=== PATIENT | male | born 1950 | race Caucasian/White ===

== ENCOUNTER 2019-10-25 15:18 | Inpatient (IN) | payer OTHER ==
--- NOTE | 2019-10-25 15:25 | PDOC ---
History of Present Illness - General Stated Complaint: NUMBNESS IN RT HAND History Source: Patient Exam Limitations: No Limitations - History of Present Illness Initial Comments: 68 yo M with a hx of HTN, HLD, and DM (on anti-oral glycemics) and denies use of aspirin and AC presents to the emergency department with right hand numbness since 2:20 pm today. Per the patient, he was at rest when he experienced the symptoms. Denies recent trauma and neck pain. Per the patient, he does not have a headache and did not have one prior to the onset or at the onset of symptoms. Currently, the patient is asymptomatic save for right arm and hand numbness. Denies the following: fevers, chills, nausea, vomiting, headaches, visual distu rbances, ears/nose/throat pain, chest pain, SOB, abdominal pain, dizziness, lightheadedness, dysuria, hematuria, diarrhea, and leg pain/swelling. Allergies: sulfa tPA Exclusion Checklist 0-3hr - Time Elapsed Date last known well: 10/25/19 Time last known well: 14:20 Elaspsed time: Day(s) and 3 Hour(s) and 22 Minutes - Thrombolytic Therapy Candidate Is the patient eligible for Thrombolytic Therapy?: No - Exclusion Criteria 0-3hr SBP greater than 185 or DBP greater than 110mmHg despite tx: No Recent IC/spinal surgery,head trauma or stroke w/in last 3mo: No Hx of previous IC hemorrhage, IC neoplasm, AVM or aneurysm: No Active internal bleeding: No Blding diathesis(low plt ct, inc PTT,INR>1.7 or use of NOAC): No Symptoms suggest subarachnoid hemorrhage: No CT demonstrates multilobar infarct(>1/3 cerebral hemiphere): No Arterial puncture at noncompressible site in previous 7 days: No Blood glucose concentration less than 50mg/dL (2.7mmol/L): No - Relative Exclusion Criteria 0-3h Care team unable to determine eligibility: No IV/IA thrombolysis/thrombectomy @ another hosp prior arrival: No Life expectancy <1yr/severe co-morbid illness/PICK UP OPERATOR on admit: No : No Patient/family refused: No Stroke severity too mild (non-disabling): Yes Recent acute WA (w/in previous 3 months): No Seizure at onset with postictal residual neuro impairments: No Major surgery or serious trauma w/in previous 14 days: No Recent GI or hemorrhage (w/in previous 21 days): No - Ineligibility reason(s) Reasons No tPA given: See reason(s) noted above NIH Stroke Scale - Last Known Well Date/Time & Onset Date Last Known Well: 10/25/19 Time Last Known Well: 14:20 - Initial Evaluation Level of consciousness: Alert Ask patient the month and their age: Answers both correctly Ask patient to open & close eyes; make fist and let go: Obeys both correctly Best gaze (horizontal eye movement): Normal Visual field testing: No visual field loss Facial paresis (Show teeth/raise eyebrows/close eyes tight): Normal symmetrical movement Motor Function: Left Arm: Normal Motor Function: Right Arm: Normal (extends arm 90 (or 45) degrees for 10 seconds without drift Motor Function: Left Leg: Normal (extends leg 30 degrees for 5 seconds without drift) Motor Function: Right Leg: Normal (extends leg 30 degrees for 5 seconds without drift) Limb Ataxia: Present in one limb (right hand dysmetria) Sensory(Use pinprick test arms,legs,trunk,face/side to side): Normal Best language (Describe picture, name items, read sentences): No Aphasia Dysarthria (read several words): Normal articulation Extinction and Inattention: No abnormality - Total Score NIH Stroke Scale Score: 1 Past History - Past Medical History Allergies/Adverse Reactions: Allergies Allergy/AdvReac Type Severity Reaction Status Date / Time Sulfa (Sulfonamide Allergy Verified 10/25/19 15:28 Antibiotics) Home Medications: Ambulatory Orders Amlodipine Besylate 5 mg PO DAILY 10/25/19 Atorvastatin Ca [Lipitor] 40 mg PO HS 10/25/19 Lisinopril 5 mg PO DAILY 10/25/19 Sitagliptin Phosphate [Januvia] 50 mg PO DAILY 10/25/19 Spironolactone 25 mg PO DAILY 10/25/19 Review of Systems - Review of Systems Able to Perform ROS?: Yes Is the patient limited Luxembourgish proficient: No Constitutional: No: Chills, Diaphoresis, Fever, Weakness HEENTM: No: Eye Pain, Ear Pain, Nose Pain, Throat Pain, Mouth Pain Respiratory: No: Cough, Shortness of Breath, Hemoptysis Cardiac (ROS): No: Chest Pain, Lightheadedness, Palpitations, Chest Tightness ABD/GI: No: Constipated, Diarrhea, Nausea, Rectal Bleeding, Vomiting, Tarry Stools : No: Burning, Hematuria Musculoskeletal: No: Back Pain, Joint Pain, Neck Pain Integumentary: No: Bruising, Erythema, Rash Neurological: Yes: Numbness (right hand). No: Headache Psychiatric: No: Change in Appetite Endocrine: No: Unexplained Weight Gain Hematologic/Lymphatic: No: Anemia *Physical Exam - Physical Exam General Appearance: Yes: Nourished, Appropriately Dressed. No: Apparent Distress, Intoxicated, Obese HEENT: positive: EOMI, VICTORINO, Normal Voice, Symmetrical, Pharynx Normal, Hearing Grossly Normal. negative: Pale Conjunctivae, Scleral Icterus (R), Scleral Icterus (L), Muffled/Hoarse voice, Pharyngeal Erythema, Tonsillar Exudate, Tonsillar Erythema, Nasal Congestion, Rhinorrhea, Sinus Tenderness, Excessive drooling Neck: positive: Trachea midline, Supple. negative: Tender, Lymphadenopathy (R), Lymphadenopathy (L) Respiratory/Chest: positive: Lungs Clear, Normal Breath Sounds. negative: Chest Tender, Respiratory Distress, Accessory Muscle Use, Decreased Breath Sounds, Paradoxal Breathing, Crackles, Rales, Rhonchi Cardiovascular: positive: Regular Rhythm, S1, S2, Tachycardia. negative: Systolic Murmur Gastrointestinal/Abdominal: positive: Normal Bowel Sounds, Flat, Soft. negative : Tender Lymphatic: negative: Adenopathy Musculoskeletal: positive: Normal Inspection. negative: CVA Tenderness, Vertebral Tenderness Extremity: positive: Normal Capillary Refill, Normal Inspection, Normal Range of Motion. negative: Tender, Swelling, Calf Tenderness Integumentary: positive: Normal Color, Dry, Warm. negative: Swelling, Ecchymosis Neurologic: positive: return clerk II-XII NML intact, Fully Oriented, Alert, Normal Mood/Affect, Normal Response, Motor Strength 5/5, Other (dysmetria in the right hand) ED Treatment Course - LABORATORY CBC & Chemistry Diagram: 10/25/19 14:45 10/25/19 14:45 Medical Decision Making - Medical Decision Making 68 yo M with a hx of HTN, HLD, and DM (on anti-oral glycemics) and denies use of aspirin and AC presents to the emergency department with right hand numbness since 2:20 pm today. Per the patient, he was at rest when he experienced the symptoms. Denies recent trauma and neck pain. Initial vitals: Initial Vital Signs Pulse Pulse Ox 95 H 96 10/25/19 15:20 10/25/19 15:20 Work up: patient presents with numbness in the right arm and hand. on physical examinatio n, no sensation deficit or motor strength deficit appreciated. however, the patient had dysmetria with his digits that was apparent on examination. concerns for lacunar vs cerebellum infarct vs hemorrhagic stroke. Neurology was consulted (Dr. Bateman). The patient will need aspirin and atrovastatin after hemorrhagic stroke ruled out Laboratory Tests 10/25/19 10/25/19 10/25/19 14:45 14:45 14:45 WBC 8.7 RBC 4.83 Hgb 15.4 Hct 44.4 MCV 91.9 MCH 31.9 MCHC 34.7 RDW 13.0 Plt Count 187 MPV 10.0 Absolute Neuts (auto) 6.2 Neutrophils % 71.6 Lymphocytes % 17.8 Monocytes % 9.1 Eosinophils % 0.7 Basophils % 0.8 Nucleated RBC % 0 PT with INR 10.80 INR 0.92 PTT (Actin FS) 26.4 Sodium 138 Potassium 4.2 Chloride 105 Carbon Dioxide 26 Anion Gap 7 L BUN 33.1 H Creatinine 1.9 H Est GFR (CKD-EPI)AfAm 41.65 Est GFR (CKD-EPI)NonAf 35.94 Random Glucose 192 H Calcium 9.1 Total Bilirubin 0.3 AST 25 ALT 39 Alkaline Phosphatase 84 Creatine Kinase 111 Troponin I < 0.02 Total Protein 7.2 Albumin 3.8 Triglycerides 174 H Cholesterol 157 Total LDL Cholesterol 93 HDL Cholesterol 40 Blood Type Antibody Screen 10/25/19 14:45 WBC RBC Hgb Hct MCV MCH MCHC RDW Plt Count MPV Absolute Neuts (auto) Neutrophils % Lymphocytes % Monocytes % Eosinophils % Basophils % Nucleated RBC % PT with INR INR PTT (Actin FS) Sodium Potassium Chloride Carbon Dioxide Anion Gap BUN Creatinine Est GFR (CKD-EPI)AfAm Est GFR (CKD-EPI)NonAf Random Glucose Calcium Total Bilirubin AST ALT Alkaline Phosphatase Creatine Kinase Troponin I Total Protein Albumin Triglycerides Cholesterol Total LDL Cholesterol HDL Cholesterol Blood Type AB POSITIVE Antibody Screen Negative ROBERT noted on labs CT of the head noted chronic left external capsule but no acute infarct or hemorrhagic stroke Patient was given aspirin and atorvastatin and admitted to hospitalist service. EKG: ventricular rate 98 bpm, NM is 162 ms, QRS is 76 ms, NSR with no ST elevations or depressions. Q wave noted in III, avF. Dispo: Admit Discharge - Discharge Information Problems reviewed: Yes Clinical Impression/Diagnosis: Cerebrovascular accident (CVA) - Follow up/Referral - Patient Discharge Instructions - Post Discharge Activity
--- NOTE | 2019-10-25 15:29 | PDOC ---
Attending Attestation - Resident Resident Name: OvidioToi - ED Attending Attestation I have performed the following: I have examined & evaluated the patient, The case was reviewed & discussed with the resident, I agree w/resident's findings & plan, Exceptions are as noted - HPI HPI: 10/25/19 16:03 68yo male with hx of htn, dm with R hand numbness and dysmetria today. 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 Pt denies weakness, no other symptoms. No keller. No blurred vision, no cp./sob. No abd pain. Ambulates with a steady gait. - Physicial Exam PE: 10/25/19 16:04 Gen: aaox3, nad heent: PERRL, EOMI, MMM Neck: supple heart: +s1s2 reg lungs: cta b/l abd: soft, nt/nd +bs ext: no c/c/e neuro: cn ii-xii grossly intact, muscle strength 5/5 ue and le, heel to casarez is intact b/l, sensation intact, R hand dysmetria present - Medical Decision Making 10/25/19 16:07 a/p: 68yo male with R hand dysmetria -pt seen by Dr. 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, but nihss 1, low nihss, risk/benefits of tpa discussed, no tpa at this time -pt will be admitted to the stroke floor for further workup -will monitor and reassess 10/25/19 16:35 no acute findings on head ct cbc reviewed and stable chronic findings on head ct 10/25/19 16:52 trop neg elevated cr labs reviewed pt will be admitted for cva workup and further eval 10/25/19 16:52 microblog sent to [facility] for admission 10/25/19 17:29 nikolasnet discussed the case with [facility] who accepts pt to service Heart Score/ECG Review - ECG Intrepretation Comment:: 10/25/19 16:09 sinus at 98, nl axis, low voltage, no acute st/t wave findings
[2019-10-25] MEDS ORDERED: SODIUM CHLORIDE 1,000 ML IV SCH (15:30)
[2019-10-25 16:08] LABS: BASO % 0.8 % (0-2.0); EOS % 0.7 % (0-4.5); HEMATOCRIT 44.4 % (35.4-49); HEMOGLOBIN 15.4 GM/dL (11.7-16.9); LYMPH % 17.8 % (8-40); MCH 31.9 pg (25.7-33.7); MCHC 34.7 g/dl (32.0-35.9); MEAN CELL VOLUME 91.9 fl (80-96); MONO % 9.1 % (3.8-10.2); NEUT % 71.6 % (42.8-82.8); PLATELET COUNT 187 K/MM3 (134-434); RBC 4.83 M/mm3 (4.00-5.60); WHITE BLOOD COUNT 8.7 K/mm3 (4.0-10.0)
[2019-10-25] MEDS ORDERED: ATORVASTATIN CA 80 MG TABLET (FP) PO ONE (16:12)
[2019-10-25] MEDS ORDERED: ASPIRIN 325 MG TABLET PO ONE (16:12)
[2019-10-25 16:29] LABS: INR 0.92 (0.83-1.09); PROTHROMBIN TIME (PATIENT) 10.8 SEC (9.7-13.0)
[2019-10-25 16:31] LABS: ACTIVATED PTT 26.4 SECONDS (25.2-36.5)
[2019-10-25 16:37] LABS: ALBUMIN 3.8 g/dl (3.4-5.0); ALK PHOS 84 U/L (45-117); ANION GAP 7 MMOL/L (8-16); BILIRUBIN,TOTAL 0.3 mg/dL (0.2-1); BLOOD UREA NITROGEN 33.1 mg/dL (7-18); CALCIUM 9.1 mg/dL (8.5-10.1); CHLORIDE 105 mmol/L (98-107); CHOLESTEROL 157 mg/dL (50-200); CO2 26 mmol/L (21-32); CREATININE 1.9 mg/dL (0.55-1.3); GLUCOSE,RANDOM 192 mg/dL (74-106); HDL CHOLESTEROL 40 mg/dL (40-60); LDL CHOLESTEROL (ONLY SJRH) 93 mg/dL (5-100); POTASSIUM 4.2 mmol/L (3.5-5.1); SGOT/AST 25 U/L (15-37); SGPT/ALT 39 U/L (13-61); SODIUM 138 mmol/L (136-145); TOT PROT 7.2 g/dl (6.4-8.2); TRIGLYCERIDES 174 mg/dL (0-150)
[2019-10-25 17:50] LABS: URINE APPEARANCE CLEAR; URINE BILIRUBIN NEGATIVE (NEGATIVE); URINE COLOR YELLOW; URINE GLUCOSE (UA) NEGATIVE (NEGATIVE); URINE KETONE NEGATIVE (NEGATIVE); URINE LEUK ESTERASE NEGATIVE (NEGATIVE); URINE NITRITE NEGATIVE (NEGATIVE); URINE PROTEIN NEGATIVE (NEGATIVE); URINE UROBILINOGEN 0.2 mg/dL (0.2-1.0)
[2019-10-25] MEDS ORDERED: ASPIRIN 81 MG CHEWABLE TABLETS ONE (18:01)
[2019-10-25] MEDS ORDERED: ATORVASTATIN CA 40 MG TABLET (FP) ONE (18:03)
--- NOTE | 2019-10-25 18:11 | HP ---
CHIEF COMPLAINT: right arm weakness PCP: Dr. Mathews PCP, Dr. Camarena (Cardiology), Dr. Fonseca (Buttermaker) HISTORY OF PRESENT ILLNESS: Patient is a 68 year old male with a significant past medical history of hypertension, hyperlipidemia, CKD (follows with neprologist) and diabetes II. Patient presents to the emergency department with right hand numbness since 2:20 pm today. Patient denies any falls, trauma or any neck pain discomfort. Right arm numbness has since subsided, but now feels like his right arm is weaker when compared to the left. he denies any headaches or visual defect. He denies any weakness to his lower extremities. Patient denies any fever, chills, nausea/vomiting or visual defects, or double vision. Patient had a recent stress test done last week with Dr. Camarena for right arm weakness, he is not aware of the results of the stress test as he has a follow up appointment next week. ER course was notable for: (1) asa 325, lipitor 80mg administered in the ED (2) head ct: mild to mod volume loss. chronic infarct involing the left external capsule and extending to the left periven white mater, no acute intracranial pathology identified. (3) Recent Travel: none PAST MEDICAL/SURGICAL HISTORY: hypertension, hyperlipidemia, CKD (follows with neprologist) and diabetes II. Social History: Smoking: none Alcohol:none Drugs: none Allergies Sulfa (Sulfonamide Antibiotics) Allergy (Verified 10/25/19 15:28) HOME MEDICATIONS: Home Medications Medication Instructions Recorded Amlodipine Besylate 5 mg PO DAILY 10/25/19 Atorvastatin Ca [Lipitor] 40 mg PO HS 10/25/19 Lisinopril 5 mg PO DAILY 10/25/19 Sitagliptin Phosphate [Januvia] 50 mg PO DAILY 10/25/19 Spironolactone 25 mg PO DAILY 10/25/19 REVIEW OF SYSTEMS CONSTITUTIONAL: Absent: fever, chills, diaphoresis, generalized weakness, malaise, loss of appetite, weight change HEENT: Absent: rhinorrhea, nasal congestion, throat pain, throat swelling, difficulty swallowing, mouth swelling, ear pain, eye pain, visual changes CARDIOVASCULAR: Absent: chest pain, syncope, palpitations, irregular heart rate, lightheadedness, peripheral edema RESPIRATORY: Absent: cough, shortness of breath, dyspnea with exertion, orthopnea, wheezing, stridor, hemoptysis GASTROINTESTINAL: Absent: abdominal pain, abdominal distension, nausea, vomiting, diarrhea, constipation, melena, hematochezia GENITOURINARY: Absent: dysuria, frequency, urgency, hesitancy, hematuria, flank pain, genital pain MUSCULOSKELETAL: Absent: myalgia, arthralgia, joint swelling, back pain, neck pain SKIN: Absent: rash, itching, pallor HEMATOLOGIC/IMMUNOLOGIC: Absent: easy bleeding, easy bruising, lymphadenopathy, frequent infections ENDOCRINE: Absent: unexplained weight gain, unexplained weight loss, heat intolerance, cold intolerance NEUROLOGIC: Absent: headache, focal weakness or paresthesias, dizziness, unsteady gait, seizure, mental status changes, bladder or bowel incontinence PSYCHIATRIC: Absent: anxiety, depression, suicidal or homicidal ideation, hallucinations. PHYSICAL EXAMINATION Vital Signs - 24 hr 10/25/19 10/25/19 10/25/19 15:20 15:28 15:45 Temperature 98.0 F 98.2 F Pulse Rate 95 H 103 H Pulse Rate [ 95 H Right] Respiratory 20 13 Rate Blood Pressure 139/89 Blood Pressure 119/80 [Left Arm] O2 Sat by Pulse 96 100 96 Oximetry (%) 10/25/19 16:45 Temperature 98.1 F Pulse Rate Pulse Rate [ 94 H Right] Respiratory 18 Rate Blood Pressure Blood Pressure 126/82 [Left Arm] O2 Sat by Pulse 99 Oximetry (%) GENERAL: Awake, alert, and fully oriented, in no acute distress. HEAD: Normal with no signs of trauma. + facial symmetry EYES: Pupils equal, round and reactive to light, extraocular movements intact EARS, NOSE, THROAT: Ears normal, nares patent, oropharynx clear without exudates. Moist mucous membranes. NECK: Normal range of motion, supple without lymphadenopathy, JVD, or masses. LUNGS: Breath sounds equal, clear to auscultation bilaterally. HEART: Regular rate and rhythm ABDOMEN: Soft, nontender, not distended, normoactive bowel sounds, no guarding, no rebound, no masses. No hepatomegaly or splenomegaly. MUSCULOSKELETAL: No CVA tenderness. UPPER EXTREMITIES: No peripheral edema. right arm 4/5, left arm 5/5, left leg 5/5, right leg 5/5 LOWER EXTREMITIES: No calf tenderness. No peripheral edema. NEUROLOGICAL: Normal speech. Normal gait. PSYCHIATRIC: Cooperative. Good eye contact. Appropriate mood and affect. SKIN: Warm, dry, normal turgor, no rashes or lesions noted, normal capillary refill. Laboratory Results - last 24 hr 10/25/19 10/25/19 10/25/19 14:45 14:45 14:45 WBC 8.7 RBC 4.83 Hgb 15.4 Hct 44.4 MCV 91.9 MCH 31.9 MCHC 34.7 RDW 13.0 Plt Count 187 MPV 10.0 Absolute Neuts (auto) 6.2 Neutrophils % 71.6 Lymphocytes % 17.8 Monocytes % 9.1 Eosinophils % 0.7 Basophils % 0.8 Nucleated RBC % 0 PT with INR 10.80 INR 0.92 PTT (Actin FS) 26.4 Sodium 138 Potassium 4.2 Chloride 105 Carbon Dioxide 26 Anion Gap 7 L BUN 33.1 H Creatinine 1.9 H Est GFR (CKD-EPI)AfAm 41.65 Est GFR (CKD-EPI)NonAf 35.94 Random Glucose 192 H Calcium 9.1 Total Bilirubin 0.3 AST 25 ALT 39 Alkaline Phosphatase 84 Creatine Kinase 111 Troponin I < 0.02 Total Protein 7.2 Albumin 3.8 Triglycerides 174 H Cholesterol 157 Total LDL Cholesterol 93 HDL Cholesterol 40 Urine Color Urine Appearance Urine pH Ur Specific [place] Urine Protein Urine Glucose (UA) Urine Ketones Urine Blood Urine Nitrite Urine Bilirubin Urine Urobilinogen Ur Leukocyte Esterase Blood Type Antibody Screen 10/25/19 10/25/19 14:45 17:30 WBC RBC Hgb Hct MCV MCH MCHC RDW Plt Count MPV Absolute Neuts (auto) Neutrophils % Lymphocytes % Monocytes % Eosinophils % Basophils % Nucleated RBC % PT with INR INR PTT (Actin FS) Sodium Potassium Chloride Carbon Dioxide Anion Gap BUN Creatinine Est GFR (CKD-EPI)AfAm Est GFR (CKD-EPI)NonAf Random Glucose Calcium Total Bilirubin AST ALT Alkaline Phosphatase Creatine Kinase Troponin I Total Protein Albumin Triglycerides Cholesterol Total LDL Cholesterol HDL Cholesterol Urine Color Yellow Urine Appearance Clear Urine pH 5.0 Ur Specific [place] 1.023 Urine Protein Negative Urine Glucose (UA) Negative Urine Ketones Negative Urine Blood Negative Urine Nitrite Negative Urine Bilirubin Negative Urine Urobilinogen 0.2 Ur Leukocyte Esterase Negative Blood Type AB POSITIVE Antibody Screen Negative ASSESSMENT/PLAN: Problem List - Problem (1) Cerebrovascular accident (CVA) Assessment/Plan: head ct with chronic changes, no acute pathology identified. for a brain mri to further evaluate as patient has risk factors (dm, htn, hld) carotid u/s ordered trend troponins monitor on tele to rule out cardiac cause of possible tia/stroke neurology consulted given as 325mg and lipitor 80 in the ED for swallow eval/physical therapy Code(s): I63.9 - CEREBRAL INFARCTION, UNSPECIFIED (2) Hypertension Assessment/Plan: controlled continue home meds, amlodopine 5 but will hold eze in the setting of ckd also on spriloadactone 25mg daily monitor bp q4 Code(s): I10 - ESSENTIAL (PRIMARY) HYPERTENSION (3) Hyperlipemia Assessment/Plan: start on atorvastatin 80mg at hs lipid panel to be repeated Code(s): E78.5 - HYPERLIPIDEMIA, UNSPECIFIED (4) Diabetes Assessment/Plan: on januvia hmga1c in the a.m. start on novolog ss with bgm checks Code(s): E11.9 - TYPE 2 DIABETES MELLITUS WITHOUT COMPLICATIONS (5) CKD (chronic kidney disease) Assessment/Plan: unknown baseline patient on eze inhibitors will ask graining operator to evaluate Code(s): N18.9 - CHRONIC KIDNEY DISEASE, UNSPECIFIED (6) DVT prophylaxis Assessment/Plan: heparin bid Code(s): Z29.9 - ENCOUNTER FOR PROPHYLACTIC MEASURES, UNSPECIFIED Visit type - Emergency Visit Emergency Visit: Yes ED Registration Date: 10/25/19 Care time: The patient presented to the Emergency Department on the above date and was hospitalized for further evaluation of their emergent condition. - New Patient This patient is new to me today: Yes Date on this admission: 10/26/19 - Critical Care Critical Care patient: No
--- NOTE | 2019-10-25 20:58 | HOSP ---
Subjective - Review of Symptoms Events since last encounter: Hospitalist Encounter was notified by Dr Bryan's per the director mission radiologist the patient's Brain MRI showed Acute foci of cortical infarction in left precentral gyri. Placed a call to Dr. Bateman's service, to update him of the results. Patient was seen in the ED by Dr. Bateman. Patient received Asa 325mg, Lipitor 80mg and is on the Cardiac Floor for close monitoring. Dr Bateman responded, appraised him of the results. No further orders at this time. Physical Examination Vital Signs: Vital Signs Temperature 98.1 F 10/25/19 16:45 Pulse Rate 94 H 10/25/19 16:45 Respiratory Rate 18 10/25/19 16:45 Blood Pressure 126/82 10/25/19 16:45 O2 Sat by Pulse Oximetry (%) 99 10/25/19 16:45 Labs: CBC, BMP 10/25/19 14:45 10/25/19 14:45 Hospitalist Encounter Assessment: Patient is a 68 year old male with a significant past medical history of hypertension, hyperlipidemia, CKD (follows with neprologist) and diabetes II. Patient presents to the emergency department with right hand numbness since 2:20 pm today. Admitted for CVA. Plan: Continue with current regimen
[2019-10-25] MEDS: HEPARIN NA (PORCINE) 5,000 UNITS/ML 1ML VIAL SQ SCH (21:32)
[2019-10-25] MEDS: INSULIN SLIDING SCALE (NOVOLOG) 1 VIAL SQ SCH (21:36)
--- NOTE | 2019-10-25 21:40 | CON.NEURO ---
Consult Consult Specialty:: Fransico Referred by:: ER Reason for Consultation:: Weakness - History of Present Illness History of Present Illness: 68 year sold man with PMH CAD OA DM HTN came in the ERe with right hand numbness at 1300 I saw the patient at 1445 in [facility] ER hand was weak Stroke protoclol intialed No TPOA due to low NIHSS CT and MR done - History Source History Provided By: Patient Limitations to Obtaining History: No Limitations - Alcohol/Substance Use Hx Alcohol Use: No - Smoking History Smoking history: Unknown if ever smoked Home Medications - Allergies Allergies/Adverse Reactions: Allergies Allergy/AdvReac Type Severity Reaction Status Date / Time Sulfa (Sulfonamide Allergy Verified 10/25/19 15:28 Antibiotics) - Home Medications Home Medications: Ambulatory Orders Amlodipine Besylate 5 mg PO DAILY 10/25/19 Atorvastatin Ca [Lipitor] 40 mg PO HS 10/25/19 Lisinopril 5 mg PO DAILY 10/25/19 Sitagliptin Phosphate [Januvia] 50 mg PO DAILY 10/25/19 Spironolactone 25 mg PO DAILY 10/25/19 Family Medical History Family History: Unremarkable Review of Systems - Review of Systems Neurological: reports: Headache, Incoordination, Numbness Physical Exam-Neuro Vital Signs: Vital Signs Temperature 98.1 F 10/25/19 16:45 Pulse Rate 94 H 10/25/19 16:45 Respiratory Rate 18 10/25/19 16:45 Blood Pressure 126/82 10/25/19 16:45 O2 Sat by Pulse Oximetry (%) 99 10/25/19 16:45 Constitutional: Yes: Well Nourished Neck: Yes: WNL Cardiovascular: Yes: WNL Labs: CBC, BMP 10/25/19 14:45 10/25/19 14:45 INR, PTT INR 0.92 (0.83-1.09) 10/25/19 14:45 - Neuro Exam Level Of Consciousness: Yes: Oriented to Person, Oriented to Place, Oriented to Time Eyes: Yes: PERRLA Speech: WNL Dominant Hand: Right Cranial Nerves II-XII Intact: Yes Gag: Present DTR's: 1+ Left Bicep, 1+ Right Bicep, 1+ Left Tricep, 1+ Right Tricep Response to light touch: Normal Response to pain prick: Normal Response to temperature: Normal Response to vibration: Abnormal Motor Strength: 3/5: Right Arm, 4/5: Left Arm, Left Leg, Right Leg Gait: Deferred NIH Stroke Scale - Last Known Well Date/Time & Onset Date Last Known Well: 10/25/19 Time Last Known Well: 13:00 - Initial Evaluation Level of consciousness: Alert Ask patient the month and their age: Answers both correctly Ask patient to open & close eyes; make fist and let go: Obeys both correctly Best gaze (horizontal eye movement): Normal Visual field testing: No visual field loss Facial paresis (Show teeth/raise eyebrows/close eyes tight): Normal symmetrical movement Motor Function: Left Arm: Normal Motor Function: Right Arm: Drift Motor Function: Left Leg: Normal (extends leg 30 degrees for 5 seconds without drift) Motor Function: Right Leg: Normal (extends leg 30 degrees for 5 seconds without drift) Limb Ataxia: No ataxia Sensory(Use pinprick test arms,legs,trunk,face/side to side): Normal Best language (Describe picture, name items, read sentences): No Aphasia Dysarthria (read several words): Normal articulation Extinction and Inattention: No abnormality - Total Score NIH Stroke Scale Score: 1 Imaging - Results X-ray: Image Reviewed MRI: Image Reviewed Problem List - Problems (1) Cerebrovascular accident (CVA) Code(s): I63.9 - CEREBRAL INFARCTION, UNSPECIFIED Assessment/Plan 1. Neuro check 2. ASA Antiplatelet 3. Fall precautions 4, Am lipid 5. PT 5. Dysphagia protocol 6. Statin 7. Echo 8. Stroke education: weight loss and smoking cessation 9. SCDs units I thank you for all you trust in getting me involved in the is patient neurological care Thank you Feli Bateman MD Neurology
[2019-10-25 23:00] VITALS: BMI 29.5
[2019-10-25] MEDS ORDERED: PNEUMOC 13-VAL CONJ-DIP CRM/PF 0.5 ML DISP.SYRIN IM ONE (23:45)
[2019-10-25] MEDS ORDERED: FLU VACCINE QUAD 60 MCG/0.5 ML (MDV 19-20) IM ONE (23:45)
[2019-10-26] MEDS: INSULIN SLIDING SCALE (NOVOLOG) 1 VIAL SQ SCH ×4 (06:48→21:29)
--- NOTE | 2019-10-26 09:51 | EKG ---
Test Reason : Blood Pressure : / mmHG Vent. Rate : 098 BPM Atrial Rate : 098 BPM P-R Int : 162 ms QRS Dur : 076 ms QT Int : 346 ms P-R-T Axes : 020 -15 036 degrees QTc Int : 441 ms NORMAL SINUS RHYTHM LOW VOLTAGE QRS CANNOT RULE OUT ANTERIOR INFARCT , AGE UNDETERMINED ABNORMAL ECG NO PREVIOUS ECGS AVAILABLE Confirmed by Antonio Romeo MD ([id number]) on 10/26/2019 9:50:47 AM Referred By: Confirmed By:Antonio Romeo MD
[2019-10-26] MEDS: ASPIRIN 81 MG CHEWABLE TABLETS PO SCH (09:59)
[2019-10-26] MEDS: HEPARIN NA (PORCINE) 5,000 UNITS/ML 1ML VIAL SQ SCH ×2 (09:59→21:24)
[2019-10-26] MEDS ORDERED: ASPIRIN COATED 81 MG TABLET.EC PO SCH (10:00)
[2019-10-26] MEDS ORDERED: amLODIPine BESYLATE 5 MG TABLET (FP) PO SCH (10:00)
[2019-10-26] MEDS ORDERED: SPIRONOLACTONE 25 MG TABLET (FP) PO SCH (10:00)
--- NOTE | 2019-10-26 10:56 | PN ---
Progress Note (short form) - Note Progress Note: CHIEF COMPLAINT: right arm weakness PCP: Dr. Mathews PCP, Dr. Camarena (Cardiology), Dr. Fonseca (Benzol Operator) HISTORY OF PRESENT ILLNESS: Patient is a 68 year old male with a significant past medical history of hypertension, hyperlipidemia, CKD (follows with neprologist) and diabetes II. Patient presents to the emergency department with right hand numbness since 2:20 pm today. Patient denies any falls, trauma or any neck pain discomfort. Right arm numbness has since subsided, but now feels like his right arm is weaker when compared to the left. he denies any headaches or visual defect. He denies any weakness to his lower extremities. Patient denies any fever, chills, nausea/vomiting or visual defects, or double vision. Patient had a recent stress test done last week with Dr. Camarena for right arm weakness, he is not aware of the results of the stress test as he has a follow up appointment next week. The sx improved and today feels better. No CP/PAlpitations. States not been on ASA Recent Travel: none PAST MEDICAL/SURGICAL HISTORY: hypertension, hyperlipidemia, CKD (follows with neprologist) and diabetes II. Social History: Smoking: none Alcohol:none Drugs: none Allergies Sulfa (Sulfonamide Antibiotics) Allergy (Verified 10/25/19 15:28) HOME MEDICATIONS: Home Medications Medication Instructions Recorded Amlodipine Besylate 5 mg PO DAILY 10/25/19 Atorvastatin Ca [Lipitor] 40 mg PO HS 10/25/19 Lisinopril 5 mg PO DAILY 10/25/19 Sitagliptin Phosphate [Januvia] 50 mg PO DAILY 10/25/19 Spironolactone 25 mg PO DAILY 10/25/19 REVIEW OF SYSTEMS CONSTITUTIONAL: Absent: fever, chills, diaphoresis, generalized weakness, malaise, loss of appetite, weight change HEENT: Absent: rhinorrhea, nasal congestion, throat pain, throat swelling, difficulty swallowing, mouth swelling, ear pain, eye pain, visual changes CARDIOVASCULAR: Absent: chest pain, syncope, palpitations, irregular heart rate, lightheadedness, peripheral edema RESPIRATORY: Absent: cough, shortness of breath, dyspnea with exertion, orthopnea, wheezing, stridor, hemoptysis GASTROINTESTINAL: Absent: abdominal pain, abdominal distension, nausea, vomiting, diarrhea, constipation, melena, hematochezia GENITOURINARY: Absent: dysuria, frequency, urgency, hesitancy, hematuria, flank pain, genital pain MUSCULOSKELETAL: Absent: myalgia, arthralgia, joint swelling, back pain, neck pain SKIN: Absent: rash, itching, pallor HEMATOLOGIC/IMMUNOLOGIC: Absent: easy bleeding, easy bruising, lymphadenopathy, frequent infections ENDOCRINE: Absent: unexplained weight gain, unexplained weight loss, heat intolerance, cold intolerance NEUROLOGIC: Absent: headache, focal weakness or paresthesias, dizziness, unsteady gait, seizure, mental status changes, bladder or bowel incontinence PSYCHIATRIC: Absent: anxiety, depression, suicidal or homicidal ideation, hallucinations. PHYSICAL EXAMINATION Vital Signs Temperature 98.5 F 10/26/19 08:21 Pulse Rate 78 10/26/19 08:21 Respiratory Rate 20 10/26/19 08:21 Blood Pressure 153/90 10/26/19 08:21 O2 Sat by Pulse Oximetry (%) 95 10/25/19 22:00 CBC, BMP 10/26/19 10:50 10/26/19 10:50 Troponin, BNP 10/25/19 14:45 Troponin I < 0.02 A&Ox3 NAD Anicteric sclerae No JVP/Bruit L:CTA H:RRR,S1S2, no M/Cl/G/R Abd: soft Ext: No edema Current Medications Aspirin (Asa -) 81 mg PO DAILY [facility] Last Admin: 10/26/19 09:59 Dose: 81 mg Documented by: Atorvastatin Calcium (Lipitor -) 80 mg PO HS [facility] Heparin Sodium (Porcine) (Heparin -) 5,000 unit SQ BID [facility] Last Admin: 10/26/19 09:59 Dose: 5,000 unit Documented by: Sodium Chloride (Normal Saline -) 1,000 mls @ 42 mls/hr IV ASDIR [facility] Last Admin: 10/25/19 16:08 Dose: 42 mls/hr Documented by: Insulin Aspart (Novolog Vial Sliding Scale -) 1 vial SQ ACHS [facility]; Protocol Last Admin: 10/26/19 06:48 Dose: Not Given Documented by: ASSESSMENT/PLAN: Problem List - Problem (1) Cerebrovascular accident (CVA) As per neurologist; Left CVA on MRI, mild carotid plaques; statin, antihtn and ASA -Echo with bubble study -If cause unclear, extended 1 month monitoring t r/o [employer] as outpatient Code(s): I63.9 - CEREBRAL INFARCTION, UNSPECIFIED (2) Hypertension Assessment/Plan: controlled continue home meds, amlodopine 5 but will hold eze in the setting of ckd also on spriloadactone 25mg daily monitor bp q4 Code(s): I10 - ESSENTIAL (PRIMARY) HYPERTENSION (3) Hyperlipemia Assessment/Plan: start on atorvastatin 80mg at hs lipid panel to be repeated Code(s): E78.5 - HYPERLIPIDEMIA, UNSPECIFIED (4) Diabetes Assessment/Plan: on januvia hmga1c in the a.m. start on novolog ss with bgm checks Code(s): E11.9 - TYPE 2 DIABETES MELLITUS WITHOUT COMPLICATIONS (5) CKD (chronic kidney disease) Assessment/Plan: unknown baseline patient on eze inhibitors will ask reaming press operator to evaluate Code(s): N18.9 - CHRONIC KIDNEY DISEASE, UNSPECIFIED (6) DVT prophylaxis Assessment/Plan: heparin bid Code(s): Z29.9 - ENCOUNTER FOR PROPHYLACTIC MEASURES, UNSPECIFIED
[2019-10-26 11:19] LABS: BASO % 0.6 % (0-2.0); EOS % 0.4 % (0-4.5); HEMATOCRIT 44.1 % (35.4-49); HEMOGLOBIN 15.1 GM/dL (11.7-16.9); MCH 31.5 pg (25.7-33.7); MCHC 34.2 g/dl (32.0-35.9); MEAN PLT VOLUME 9.9 fl (7.5-11.1); MONO % 9.5 % (3.8-10.2); NEUT % 75.5 % (42.8-82.8); PLATELET COUNT 167 K/MM3 (134-434); RDW 13.2 % (11.9-15.9); WHITE BLOOD COUNT 9.8 K/mm3 (4.0-10.0)
[2019-10-26 12:04] LABS: ALBUMIN 3.9 g/dl (3.4-5.0); BILIRUBIN,TOTAL 0.8 mg/dL (0.2-1); BLOOD UREA NITROGEN 26.3 mg/dL (7-18); CREATININE 1.6 mg/dL (0.55-1.3); POTASSIUM 4.6 mmol/L (3.5-5.1); TOT PROT 7.2 g/dl (6.4-8.2)
--- NOTE | 2019-10-26 15:02 | PN ---
Progress Note, Physician History of Present Illness: eevents noted Seen on the telemetry No chest pain or palpitation Left arm is much better Seen by physical therapy On the antiplatelet therapy - Current Medication List Current Medications: Active Medications Amlodipine Besylate (Norvasc -) 10 mg PO DAILY [facility] Aspirin (Asa -) 81 mg PO DAILY [facility] Last Admin: 10/26/19 09:59 Dose: 81 mg Documented by: Atorvastatin Calcium (Lipitor -) 80 mg PO HS [facility] Heparin Sodium (Porcine) (Heparin -) 5,000 unit SQ BID [facility] Last Admin: 10/26/19 09:59 Dose: 5,000 unit Documented by: Sodium Chloride (Normal Saline -) 1,000 mls @ 42 mls/hr IV ASDIR [facility] Last Admin: 10/25/19 16:08 Dose: 42 mls/hr Documented by: Insulin Aspart (Novolog Vial Sliding Scale -) 1 vial SQ ACHS [facility]; Protocol Last Admin: 10/26/19 13:59 Dose: Not Given Documented by: - Objective Vital Signs: Vital Signs Temperature 98.8 F 10/26/19 14:00 Pulse Rate 86 10/26/19 14:00 Respiratory Rate 20 10/26/19 14:00 Blood Pressure 133/71 10/26/19 14:00 O2 Sat by Pulse Oximetry (%) 95 10/26/19 09:00 Constitutional: Yes: Well Nourished Eyes: Yes: WNL HENT: Yes: WNL Neurological: Yes: Alert, Oriented, Babinski positive ...Motor Strength: RUE (4/5) Labs: CBC, BMP 10/26/19 10:50 10/26/19 10:50 INR, PTT INR 0.92 (0.83-1.09) 10/25/19 14:45 Problem List - Problems (1) Cerebrovascular accident (CVA) Code(s): I63.9 - CEREBRAL INFARCTION, UNSPECIFIED Assessment/Plan 1. Continue antiplatelet. 2. Acute rehabilitation. 3. Fall precautions. Tight cholesterol control
[2019-10-26] MEDS: amLODIPine BESYLATE 10 MG TABLET (FP) PO SCH (15:15)
--- NOTE | 2019-10-26 16:37 | PN ---
Physical Exam: SUBJECTIVE: Patient seen and examined. denies pain, headaches or visual defects. OBJECTIVE: Patient is a 68 year old male with a significant past medical history of hypertension, hyperlipidemia, CKD (follows with neprologist) and diabetes II. Patient presents to the emergency department with right hand numbness, with acute onset on 10/24/2001 at 2:20 pm. Patient denies any falls, trauma or any neck pain discomfort. Head Ct negative for acute process but a chronic infarct in the left external capsule seen. Brain MRI confirms CVA with findings of acute foci of cortical infarction in left precentral gyri. Period Temp Pulse Resp BP Sys/Garcia Pulse Ox Last 24 Hr 97.1 F-98.8 F 63-95 13-20 119-153/70-90 95-99 GENERAL: Awake, alert, and fully oriented, in no acute distress. HEAD: Normal with no signs of trauma. + facial symmetry EYES: Pupils equal, round and reactive to light, extraocular movements intact EARS, NOSE, THROAT: Ears normal, nares patent, oropharynx clear without exudates. Moist mucous membranes. NECK: Normal range of motion, supple without lymphadenopathy, JVD, or masses. LUNGS: Breath sounds equal, clear to auscultation bilaterally. HEART: Regular rate and rhythm ABDOMEN: Soft, nontender, not distended, normoactive bowel sounds, no guarding, no rebound, no masses. No hepatomegaly or splenomegaly. MUSCULOSKELETAL: No CVA tenderness. UPPER EXTREMITIES: No peripheral edema. right arm 4/5, left arm 5/5, left leg 5/5, right leg 5/5 LOWER EXTREMITIES: No calf tenderness. No peripheral edema. NEUROLOGICAL: Normal speech. Normal gait. PSYCHIATRIC: Cooperative. Good eye contact. Appropriate mood and affect. SKIN: Warm, dry, normal turgor, no rashes or lesions noted, normal capillary refill. Laboratory Results - last 24 hr 10/25/19 10/25/19 10/25/19 14:45 14:45 14:45 WBC 8.7 RBC 4.83 Hgb 15.4 Hct 44.4 MCV 91.9 MCH 31.9 MCHC 34.7 RDW 13.0 Plt Count 187 MPV 10.0 Absolute Neuts (auto) 6.2 Neutrophils % 71.6 Lymphocytes % 17.8 Monocytes % 9.1 Eosinophils % 0.7 Basophils % 0.8 Nucleated RBC % 0 PT with INR 10.80 INR 0.92 PTT (Actin FS) 26.4 Sodium 138 Potassium 4.2 Chloride 105 Carbon Dioxide 26 Anion Gap 7 L BUN 33.1 H Creatinine 1.9 H Est GFR (CKD-EPI)AfAm 41.65 Est GFR (CKD-EPI)NonAf 35.94 POC Glucometer Random Glucose 192 H Hemoglobin A1c % Calcium 9.1 Phosphorus Magnesium Total Bilirubin 0.3 AST 25 ALT 39 Alkaline Phosphatase 84 Creatine Kinase 111 Troponin I < 0.02 Total Protein 7.2 Albumin 3.8 Triglycerides 174 H Cholesterol 157 Total LDL Cholesterol 93 HDL Cholesterol 40 Urine Color Urine Appearance Urine pH Ur Specific Hazel Urine Protein Urine Glucose (UA) Urine Ketones Urine Blood Urine Nitrite Urine Bilirubin Urine Urobilinogen Ur Leukocyte Esterase Blood Type Antibody Screen 10/25/19 10/25/19 10/25/19 14:45 17:30 21:36 WBC RBC Hgb Hct MCV MCH MCHC RDW Plt Count MPV Absolute Neuts (auto) Neutrophils % Lymphocytes % Monocytes % Eosinophils % Basophils % Nucleated RBC % PT with INR INR PTT (Actin FS) Sodium Potassium Chloride Carbon Dioxide Anion Gap BUN Creatinine Est GFR (CKD-EPI)AfAm Est GFR (CKD-EPI)NonAf POC Glucometer 112 Random Glucose Hemoglobin A1c % Calcium Phosphorus Magnesium Total Bilirubin AST ALT Alkaline Phosphatase Creatine Kinase Troponin I Total Protein Albumin Triglycerides Cholesterol Total LDL Cholesterol HDL Cholesterol Urine Color Yellow Urine Appearance Clear Urine pH 5.0 Ur Specific Hazel 1.023 Urine Protein Negative Urine Glucose (UA) Negative Urine Ketones Negative Urine Blood Negative Urine Nitrite Negative Urine Bilirubin Negative Urine Urobilinogen 0.2 Ur Leukocyte Esterase Negative Blood Type AB POSITIVE Antibody Screen Negative 10/26/19 10/26/19 10/26/19 05:16 10:50 10:50 WBC 9.8 RBC 4.80 Hgb 15.1 Hct 44.1 MCV 92.0 MCH 31.5 MCHC 34.2 RDW 13.2 Plt Count 167 MPV 9.9 Absolute Neuts (auto) 7.4 Neutrophils % 75.5 Lymphocytes % 14.0 D Monocytes % 9.5 Eosinophils % 0.4 Basophils % 0.6 Nucleated RBC % 0 PT with INR INR PTT (Actin FS) Sodium 138 Potassium 4.6 Chloride 105 Carbon Dioxide 26 Anion Gap 7 L BUN 26.3 H Creatinine 1.6 H Est GFR (CKD-EPI)AfAm 51.27 Est GFR (CKD-EPI)NonAf 44.24 POC Glucometer 129 Random Glucose 152 H Hemoglobin A1c % Calcium 9.0 Phosphorus 2.0 L Magnesium Total Bilirubin 0.8 AST 25 ALT 38 Alkaline Phosphatase 86 Creatine Kinase Troponin I Total Protein 7.2 Albumin 3.9 Triglycerides 162 H Cholesterol 164 Total LDL Cholesterol 97 HDL Cholesterol 40 Urine Color Urine Appearance Urine pH Ur Specific Hazel Urine Protein Urine Glucose (UA) Urine Ketones Urine Blood Urine Nitrite Urine Bilirubin Urine Urobilinogen Ur Leukocyte Esterase Blood Type Antibody Screen 10/26/19 10/26/19 10/26/19 10:50 10:50 12:15 WBC RBC Hgb Hct MCV MCH MCHC RDW Plt Count MPV Absolute Neuts (auto) Neutrophils % Lymphocytes % Monocytes % Eosinophils % Basophils % Nucleated RBC % PT with INR INR PTT (Actin FS) Sodium Potassium Chloride Carbon Dioxide Anion Gap BUN Creatinine Est GFR (CKD-EPI)AfAm Est GFR (CKD-EPI)NonAf POC Glucometer 115 Random Glucose Hemoglobin A1c % 7.0 H Calcium Phosphorus Magnesium 2.0 Total Bilirubin AST ALT Alkaline Phosphatase Creatine Kinase Troponin I Total Protein Albumin Triglycerides Cholesterol Total LDL Cholesterol HDL Cholesterol Urine Color Urine Appearance Urine pH Ur Specific Hazel Urine Protein Urine Glucose (UA) Urine Ketones Urine Blood Urine Nitrite Urine Bilirubin Urine Urobilinogen Ur Leukocyte Esterase Blood Type Antibody Screen Active Medications Generic Name Dose Route Start Last Admin Trade Name Clayq PRN Reason Stop Dose Admin Amlodipine Besylate 10 mg 10/26/19 14:30 10/26/19 15:15 Norvasc - PO 10 mg DAILY [facility] Administration Aspirin 81 mg 10/26/19 10:00 10/26/19 09:59 Asa - PO 81 mg DAILY [facility] Administration Atorvastatin Calcium 80 mg 10/26/19 22:00 Lipitor - PO HS [facility] Heparin Sodium (Porcine) 5,000 unit 10/25/19 22:00 10/26/19 09:59 Heparin - SQ 5,000 unit BID [facility] Administration Sodium Chloride 1,000 mls @ 42 mls/hr 10/25/19 15:30 10/25/19 16:08 Normal Saline - IV 42 mls/hr ASDIR [facility] Administration Insulin Aspart 1 vial 10/25/19 22:00 10/26/19 13:59 Novolog Vial Sliding Scale - SQ Not Given ACHS [facility] Protocol ASSESSMENT/PLAN: Problem List - Problems (1) Cerebrovascular accident (CVA) Assessment/Plan: CVA confirmed by brain MRI that showed acute foci of cortical infarction in left precentral gyri. Carotid ultrasounds without hemodynamic findings troponins negative Monitor on tele to rule out cardiac cause of possible tia/stroke neurology consulted and following given as 325mg and lipitor 80 in the ED, will continue with asa 81mg and lipitor 80mg for swallow eval/physical therapy Code(s): I63.9 - CEREBRAL INFARCTION, UNSPECIFIED (2) Hypertension Assessment/Plan: controlled continue home meds, amlodopine 5 but will hold eze in the setting of ckd also on spriloadactone 25mg daily monitor bp q4 Code(s): I10 - ESSENTIAL (PRIMARY) HYPERTENSION (3) Hyperlipemia Assessment/Plan: start on atorvastatin 80mg at hs lipid panel shows elevated triglycerides Code(s): E78.5 - HYPERLIPIDEMIA, UNSPECIFIED (4) Diabetes Assessment/Plan: on januvia hmga1c 7.0 on novolog ss with bgm checks Code(s): E11.9 - TYPE 2 DIABETES MELLITUS WITHOUT COMPLICATIONS (5) CKD (chronic kidney disease) Assessment/Plan: unknown baseline patient on eze inhibitors will ask pulping machine operator to evaluate Code(s): N18.9 - CHRONIC KIDNEY DISEASE, UNSPECIFIED (6) DVT prophylaxis Assessment/Plan: heparin bid Code(s): Z29.9 - ENCOUNTER FOR PROPHYLACTIC MEASURES, UNSPECIFIED Visit type - Emergency Visit Emergency Visit: Yes ED Registration Date: 10/25/19 Care time: The patient presented to the Emergency Department on the above date and was hospitalized for further evaluation of their emergent condition. - New Patient This patient is new to me today: No - Critical Care Critical Care patient: No - Discharge Referral Referred to [facility] No
--- NOTE | 2019-10-26 16:59 | CONSULT ---
Consult Consult Specialty:: Nephrology Reason for Consultation:: CKD - History of Present Illness Chief Complaint: rigth arm numbness History of Present Illness: Pt is a 68 year old male with pmhx of ckd, DM, hld, and htn who presents to the ER with right arm numbness. He was found to have a CVA. I was called to evaluate him for elevated manager enrollment. He Has history of ckd and his baseline is about 1.7. He denies dysuria or hematuria. He does follow with a bench press operator. He says that the ckd was attributed to htn. He denies nsaid use. - History Source History Provided By: Patient - Past Medical History Cardio/Vascular: Yes: HTN Renal/: Yes: Renal Inusuff - Alcohol/Substance Use Hx Alcohol Use: No - Smoking History Smoking history: Never smoked Have you smoked in the past 12 months: No Home Medications - Allergies Allergies/Adverse Reactions: Allergies Allergy/AdvReac Type Severity Reaction Status Date / Time Sulfa (Sulfonamide Allergy Verified 10/25/19 15:28 Antibiotics) - Home Medications Home Medications: Ambulatory Orders Amlodipine Besylate 5 mg PO DAILY 10/25/19 Atorvastatin Ca [Lipitor] 40 mg PO HS 10/25/19 Lisinopril 5 mg PO DAILY 10/25/19 Sitagliptin Phosphate [Januvia] 50 mg PO DAILY 10/25/19 Spironolactone 25 mg PO DAILY 10/25/19 Family Medical History Family History: Denies Review of Systems - Review of Systems Constitutional: reports: Malaise Eyes: reports: No Symptoms HENT: reports: No Symptoms Neck: reports: No Symptoms Cardiovascular: reports: No Symptoms Gastrointestinal: reports: No Symptoms Genitourinary: reports: No Symptoms Musculoskeletal: reports: Other (right arm weakness) Neurological: reports: Other (right arm weakness) Endocrine: reports: No Symptoms Psychiatric: reports: No Symptoms Physical Exam Vital Signs: Vital Signs Temperature 98.8 F 10/26/19 14:00 Pulse Rate 86 10/26/19 14:00 Respiratory Rate 20 10/26/19 14:00 Blood Pressure 133/71 10/26/19 14:00 O2 Sat by Pulse Oximetry (%) 95 10/26/19 09:00 Constitutional: Yes: Calm Eyes: Yes: Conjunctiva Clear HENT: Yes: Atraumatic Neck: Yes: Supple Cardiovascular: Yes: S1, S2 Respiratory: Yes: CTA Bilaterally Gastrointestinal: Yes: Normal Bowel Sounds, Soft Renal/: Yes: WNL Musculoskeletal: Yes: WNL Edema: No Neurological: Yes: Oriented, Other (right arm weakness) Psychiatric: Yes: Oriented Labs: CBC, BMP 10/26/19 10:50 10/26/19 10:50 Laboratory Tests 10/25/19 10/25/19 10/26/19 14:45 17:30 10:50 Creatinine 1.9 H 1.6 H Urine Protein Negative Urine Blood Negative Imaging - Results MRI: Report Reviewed Problem List - Problems (1) CKD (chronic kidney disease) Code(s): N18.9 - CHRONIC KIDNEY DISEASE, UNSPECIFIED (2) Cerebrovascular accident (CVA) Code(s): I63.9 - CEREBRAL INFARCTION, UNSPECIFIED (3) Hyperlipemia Code(s): E78.5 - HYPERLIPIDEMIA, UNSPECIFIED (4) Hypertension Code(s): I10 - ESSENTIAL (PRIMARY) HYPERTENSION Assessment/Plan Current Medications Generic Name Dose Route Start Last Admin Trade Name Karla PRN Reason Stop Dose Admin Amlodipine Besylate 10 mg 10/26/19 14:30 10/26/19 15:15 Norvasc - PO 10 mg DAILY [facility] Administration Aspirin 81 mg 10/26/19 10:00 10/26/19 09:59 Asa - PO 81 mg DAILY [facility] Administration Atorvastatin Calcium 80 mg 10/26/19 22:00 Lipitor - PO HS [facility] Heparin Sodium (Porcine) 5,000 unit 10/25/19 22:00 10/26/19 09:59 Heparin - SQ 5,000 unit BID [facility] Administration Sodium Chloride 1,000 mls @ 42 mls/hr 10/25/19 15:30 10/25/19 16:08 Normal Saline - IV 42 mls/hr ASDIR [facility] Administration Insulin Aspart 1 vial 10/25/19 22:00 10/26/19 13:59 Novolog Vial Sliding Scale - SQ Not Given ACHS [facility] Protocol Impression 1. CKD 2. CVA 3. HTN 4. cad Plan - can d/c fluids - renal function stable - bp meds on hold as bp is on the low side - avoid nephrotoxins - ua negative for blood or protein - repeat labs in am
[2019-10-26] MEDS ORDERED: ATORVASTATIN CA 80 MG TABLET (FP) PO SCH ×2 (22:00)
[2019-10-27] MEDS: INSULIN SLIDING SCALE (NOVOLOG) 1 VIAL SQ SCH ×2 (06:17→12:26)
--- NOTE | 2019-10-27 09:55 | PN ---
Progress Note, Physician History of Present Illness: Right hand numbness resolving. - Current Medication List Current Medications: Active Medications Amlodipine Besylate (Norvasc -) 10 mg PO DAILY [facility] Last Admin: 10/26/19 15:15 Dose: 10 mg Documented by: Aspirin (Asa -) 81 mg PO DAILY [facility] Last Admin: 10/26/19 09:59 Dose: 81 mg Documented by: Atorvastatin Calcium (Lipitor -) 80 mg PO HS [facility] Last Admin: 10/26/19 21:24 Dose: 80 mg Documented by: Heparin Sodium (Porcine) (Heparin -) 5,000 unit SQ BID [facility] Last Admin: 10/26/19 21:24 Dose: 5,000 unit Documented by: Insulin Aspart (Novolog Vial Sliding Scale -) 1 vial SQ ACHS [facility]; Protocol Last Admin: 10/27/19 06:17 Dose: Not Given Documented by: - Objective Vital Signs: Vital Signs Temperature 97.6 F 10/27/19 01:26 Pulse Rate 68 10/27/19 05:50 Respiratory Rate 20 10/27/19 05:50 Blood Pressure 112/77 10/27/19 05:50 O2 Sat by Pulse Oximetry (%) 97 10/26/19 21:00 Constitutional: Yes: No Distress, Calm Neck: Yes: Supple Cardiovascular: Yes: Regular Rate and Rhythm Respiratory: Yes: Regular, CTA Bilaterally Gastrointestinal: Yes: Normal Bowel Sounds, Soft Edema: No Labs: CBC, BMP 10/26/19 10:50 10/26/19 10:50 INR, PTT INR 0.92 (0.83-1.09) 10/25/19 14:45 - ....Imaging EKG: Report Reviewed (Tele: NSR, no PAF) Assessment/Plan 10/25/2019 Brain MRI: acute cortical infarct left precentral gyri - Problem (1) Cerebrovascular accident (CVA) As per neurologist; Left CVA on MRI, mild carotid plaques; statin, antihtn and ASA 81 qd -Echo with bubble study -If cause unclear, extended 1 month monitoring to r/o Afib/flutter as outpatient Code(s): I63.9 - CEREBRAL INFARCTION, UNSPECIFIED (2) Hypertension Assessment/Plan: controlled continue home meds, amlodopine 5 but will hold eze and spirinolactone 25mg daily in the setting of acute on ckd Code(s): I10 - ESSENTIAL (PRIMARY) HYPERTENSION (3) Hyperlipemia Assessment/Plan: start on atorvastatin 80mg qhs Code(s): E78.5 - HYPERLIPIDEMIA, UNSPECIFIED (4) Diabetes Assessment/Plan: on januvia Ha1c 7.0%. start on novolog ss with bgm checks Code(s): E11.9 - TYPE 2 DIABETES MELLITUS WITHOUT COMPLICATIONS (5) Acute on CKD (chronic kidney disease) improving Assessment/Plan: unknown baseline, will check outpatient records patient on eze inhibitors and spirinolactone held pending renal fxn stabilization will ask automobile mechanic motor to evaluate Code(s): N18.9 - CHRONIC KIDNEY DISEASE, UNSPECIFIED (6) DVT prophylaxis Assessment/Plan: heparin bid Code(s): Z29.9 - ENCOUNTER FOR PROPHYLACTIC MEASURES, UNSPECIFIED
--- NOTE | 2019-10-27 10:00 | CONSULT ---
Admitting History and Physical - Primary Care Physician PCP: Mary Joseph - Admission History of Present Illness: 68 year old male with a significant past medical history of hypertension, hyperlipidemia, CKD and diabetes II presented with right hand numbness. Head Ct negative for acute process but a chronic infarct in the left external capsule seen. Brain MRI confirms CVA with findings of acute foci of cortical infarction in left precentral gyri. Selected Entries 10/26/19 10/26/19 10/26/19 03:00 05:46 08:21 Breakfast Supper Temperature 98 F 97.1 F L 98.5 F 10/26/19 10/26/19 10/26/19 09:00 10:44 14:00 Breakfast 75% Supper Temperature 98.5 F 98.8 F 10/26/19 10/26/19 10/27/19 18:00 21:19 01:26 Breakfast Supper 100% Temperature 98.2 F 98.2 F 97.6 F 10/27/19 09:21 Breakfast 75% Supper Temperature Laboratory Tests 10/25/19 10/26/19 14:45 10:50 WBC 8.7 9.8 Went down for echo. History Source: Patient Limitations to Obtaining History: No Limitations - Past Medical History Cardiovascular: Yes: HTN Renal/: Yes: Renal Inusuff - Smoking History Smoking history: Never smoked Have you smoked in the past 12 months: No - Alcohol/Substance Use Hx Alcohol Use: No History - Admission Reason For Visit: CEREBROVASCULAR ACCIDENT (CVA) - Diagnostics X-ray: Report Reviewed CT Scan: Report Reviewed MRI: Report Reviewed - General Mental Status: Alert and Oriented Attention: Intact Ability to Follow Directions: Excellent Head/Neck Control: WFL - Hearing Hearing: Normal Speech Evaluation - Communication Communication: Yes: Within Normal Limits Oral Expression Ability: Yes: No Impairment - Speech Production Able to Make Needs Known: Yes: WNL Intelligibility: Yes: WNL - Speech Characteristics Voice Loudness: Normal Voice Pitch: Yes: Normal Voice Phonatory-based Quality: Yes: Normal Speech Pattern: Normal Speech Clarity: < 100% Nasal Resonance: Normal Articulation: Yes: Precise Rate of Speech: Intact - Language/Auditory Comprehension Follows: Yes: 2 Stage Simple Commands Observation: Able to respond to yes/no queries: Yes, Yes/No Confusion: No, Comprehends Conversational Speech: Yes - Language/Verbal Expression Able to Respond to Simple Queries: Yes: WNL Able to Communicate Wants and Needs: Yes: WNL Functional Communication Status: Yes: WNL - Swallow Evaluation/Bedside Assessment Current Nutritional Intake: Regular, Thin Liquids Oral Secretions: Yes: WFL Facial Symmetry at Rest: Symmetrical Facial Symmetry on Retraction: Symmetrical Facial Movement: Controlled Sensation: Normal Against Resistance Opening: Normal Against Resistance Closing: Normal Pucker Lips: Normal Smile: Normal Lingual Movement: Normal, Symmetric Lingual Speed of Movement: Normal Lingual Movement Strgth Against Opposition: Normal Lingual Movement Characteristics: Normal Velopharyngeal Movement: Normal Laryngeal Elevation: WFL Laryngeal Movement: Able to Palpate Rate of Intake: WFL Bolus Size: WFL Labial Seal: WFL Chewing: WFL Oral Prep Time: WFL A-P Transit: WFL Pocketing: None Timing of Swallow: WFL Coughing/Throat Clear: No Change in Voice: No Recommendations - Speech Evaluation, Impression/Plan Impression: Speech,language, cognition, swallowing intact - Dysphagia Impressions/Plan Swallowing Skills: WFL Dysphagia Impressions: No Impairment *Silent aspiration: cannot be R/O at bedside - Recommendations Diet Consistency: Regular Medication Administration: Whole with water Liquids: Thin Liquids
[2019-10-27 10:02] VITALS: TEMP 98.2
[2019-10-27] MEDS: amLODIPine BESYLATE 10 MG TABLET (FP) PO SCH (10:21)
[2019-10-27 10:42] LABS: BASO % 0.7 % (0-2.0); EOS % 0.9 % (0-4.5); HEMATOCRIT 45.3 % (35.4-49); HEMOGLOBIN 15.7 GM/dL (11.7-16.9); MCH 31.4 pg (25.7-33.7); MCHC 34.7 g/dl (32.0-35.9); MEAN CELL VOLUME 90.5 fl (80-96); MEAN PLT VOLUME 9.7 fl (7.5-11.1); MONO % 10.6 % (3.8-10.2); NEUT % 68.8 % (42.8-82.8); PLATELET COUNT 174 K/MM3 (134-434); RBC 5.01 M/mm3 (4.00-5.60); RDW 12.9 % (11.9-15.9); WHITE BLOOD COUNT 7.2 K/mm3 (4.0-10.0)
[2019-10-27 11:10] LABS: ALBUMIN 4.1 g/dl (3.4-5.0); BILIRUBIN,TOTAL 0.9 mg/dL (0.2-1); BLOOD UREA NITROGEN 25.5 mg/dL (7-18); CALCIUM 9.2 mg/dL (8.5-10.1); CREATININE 1.7 mg/dL (0.55-1.3); POTASSIUM 4.5 mmol/L (3.5-5.1); TOT PROT 7.9 g/dl (6.4-8.2)
--- NOTE | 2019-10-27 12:07 | ECHO ---
Name: LELAND LEONARD Exam:Adult Echocardiogram Study Date: 10/27/2019 10:52 AM Age: 68 yrs Reason For Study: CVA saline bubble for PFO Height: 70 in Weight: 206 lb BSA: 2.1 m2 MMode/2D Measurements & Calculations IVSd: 0.89 cm Ao root diam: 2.8 cm LVIDd: 3.9 cm LA dimension: 2.9 cm LVIDs: 2.8 cm LVPWd: 1.1 cm LVPWs: 1.1 cm EDV(Teich): 65.0 ml ESV(Teich): 30.8 ml LVOT diam: 2.0 cm RV S Shiv: 11.2 cm/sec Doppler Measurements & Calculations Ao V2 max: 157.2 cm/sec AI max shiv: 396.3 cm/sec Ao max P.0 mmHg AI max P.8 mmHg AI P1/2t: 618.6 msec AI dec slope: 187.6 cm/sec2 MYRIAM(V,D): 2.2 cm2 LV V1 max P.1 mmHg TR max shiv: 203.6 cm/sec LV V1 max: 112.5 cm/sec TR max P.6 mmHg PA V2 max: 99.9 cm/sec Med Peak E' Shiv: 4.4 cm/sec PA max P.0 mmHg Lat Peak E' Shiv: 7.5 cm/sec Left Ventricle The left ventricle is normal in size. There is borderline concentric left ventricular hypertrophy. Th e left ventricular ejection fraction is normal. Ejection Fraction = 60-65%. The transmitral spectral Doppler flow pattern is suggestive of impaired LV relaxation. Right Ventricle The right ventricle is normal in size and function. Atria Normal left and right atrial size and function. Injection of contrast documented no interatrial shunt . Mitral Valve The mitral valve is grossly normal. There is no mitral regurgitation noted. Tricuspid Valve The tricuspid valve is not well visualized, but is grossly normal. There is trace tricuspid regurgita tion. Aortic Valve The aortic valve is trileaflet. There is mild aortic sclerosis.;. Mild aortic regurgitation. Pulmonic Valve The pulmonic valve is not well seen, but is grossly normal. Mild pulmonic valvular regurgitation. Pericardium/Pleura There is no pericardial effusion. Interpretation Summary LV: Normal size and systolic function EF 55-60%, impaired relaxation RV: Normal AV; Mildly sclerotic with mild regurgitation No interatrial shunt with saline contrast. Mayelin Ramírez 10/27/2019 12:06 PM
[2019-10-27] MEDS: HEPARIN NA (PORCINE) 5,000 UNITS/ML 1ML VIAL SQ SCH (12:24)
[2019-10-27] MEDS: ASPIRIN 81 MG CHEWABLE TABLETS PO SCH (12:25)
--- NOTE | 2019-10-27 13:45 | DS ---
Physical Exam: SUBJECTIVE: Patient seen and examined OBJECTIVE: Patient is a 68 year old male with a significant past medical history of hypertension, hyperlipidemia, CKD (follows with neprologist) and diabetes II. Patient presents to the emergency department with right hand numbness, with acute onset on 10/24/2001 at 2:20 pm. Patient denies any falls, trauma or any neck pain discomfort. Head Ct negative for acute process but a chronic infarct in the left external capsule seen. Brain MRI confirms CVA with findings of acute foci of cortical infarction in left precentral gyri. Patient with negative echo. He agrees to outpatient follow up with PCP and neurologist. He has also been advised to follow up with his decorating machine tender to rule our PAF as cause for stroke. Vital Signs Period Temp Pulse Resp BP Sys/Garcia Pulse Ox Last 24 Hr 97.6 F-98.8 F 65-89 20-20 111-145/66-89 97-97 PHYSICAL EXAM GENERAL: Awake, alert, and fully oriented, in no acute distress. HEAD: Normal with no signs of trauma. + facial symmetry EYES: Pupils equal, round and reactive to light, extraocular movements intact EARS, NOSE, THROAT: Ears normal, nares patent, oropharynx clear without exudates. Moist mucous membranes. NECK: Normal range of motion, supple without lymphadenopathy, JVD, or masses. LUNGS: Breath sounds equal, clear to auscultation bilaterally. HEART: Regular rate and rhythm ABDOMEN: Soft, nontender, not distended, normoactive bowel sounds, no guarding, no rebound, no masses. No hepatomegaly or splenomegaly. MUSCULOSKELETAL: No CVA tenderness. UPPER EXTREMITIES: No peripheral edema. right arm 4/5, left arm 5/5, left leg 5/5, right leg 5/5 LOWER EXTREMITIES: No calf tenderness. No peripheral edema. NEUROLOGICAL: Normal speech. Normal gait. PSYCHIATRIC: Cooperative. Good eye contact. Appropriate mood and affect. SKIN: Warm, dry, normal turgor, no rashes or lesions noted, normal capillary refill. LABS Laboratory Results - last 24 hr 10/26/19 10/26/19 10/27/19 17:12 21:13 05:47 WBC RBC Hgb Hct MCV MCH MCHC RDW Plt Count MPV Absolute Neuts (auto) Neutrophils % Lymphocytes % Monocytes % Eosinophils % Basophils % Nucleated RBC % Sodium Potassium Chloride Carbon Dioxide Anion Gap BUN Creatinine Est GFR (CKD-EPI)AfAm Est GFR (CKD-EPI)NonAf POC Glucometer 114 111 125 Random Glucose Calcium Total Bilirubin AST ALT Alkaline Phosphatase Total Protein Albumin 10/27/19 10/27/19 10/27/19 10:05 10:05 12:22 WBC 7.2 RBC 5.01 Hgb 15.7 Hct 45.3 MCV 90.5 MCH 31.4 MCHC 34.7 RDW 12.9 Plt Count 174 MPV 9.7 Absolute Neuts (auto) 5.0 Neutrophils % 68.8 Lymphocytes % 19.0 D Monocytes % 10.6 H Eosinophils % 0.9 D Basophils % 0.7 Nucleated RBC % 0 Sodium 138 Potassium 4.5 Chloride 106 Carbon Dioxide 24 Anion Gap 8 BUN 25.5 H Creatinine 1.7 H Est GFR (CKD-EPI)AfAm 47.65 Est GFR (CKD-EPI)NonAf 41.11 POC Glucometer 127 Random Glucose 140 H Calcium 9.2 Total Bilirubin 0.9 AST 27 ALT 43 Alkaline Phosphatase 97 Total Protein 7.9 Albumin 4.1 HOSPITAL COURSE: Date of Admission:10/25/19 Date of Discharge: 10/27/19 Discharge Summary Problems reviewed: Yes Reason For Visit: CEREBROVASCULAR ACCIDENT (CVA) Current Active Problems CKD (chronic kidney disease) (Acute) Cerebrovascular accident (CVA) (Acute) DVT prophylaxis (Acute) Diabetes (Acute) Hyperlipemia (Acute) Hypertension (Acute) Condition: Improved - Instructions Diet, Activity, Other Instructions: Mr. Elizondo: You were admitted to [facility] after you had a stroke confirmed by the brain MRI. During your hospital stay you were seen by cardiology and neurology specialty. Here are our discharge instructions: Stroke: What is a stroke? A stroke is a sudden interruption of in the blood supply of the brain. How do I prevent future stroke? Best way to prevent future stroke is to decrease the risk factors, eating better (whole grains, less fatty foods and increase in vegetables and whole grain foods ). Weight loss can also be beneficial. Risk factors of strokes: elevated blood pressure obesity alcohol consumption diabetes smoking You will need further testing with your primary decorating machine tender to rule out irregular heart beat as a possible cause for stroke. -------- Here is your new medication list: Aspirin 81mg ONCE PER DAY at 8am - This is for stroke prevention Lipitor 80mg ONCE PER DAY at bedtime - This is for elevated cholesterol Amlodopine 10mg ONCE PER DAY at 8am - This is for blood pressure control Sprionolactone 25mg ONCE PER DAY at 8am - This is for blood pressure control Lisinopril 5mg ONCE PER DAY at 8am - This is for blood pressure control Januvia 50mg ONCE PER DAY at 8am - Continue taking for diabetes control Follow ups: Please follow up with Dr. Bateman (neurologist) as well as your private decorating machine tender. It is important that you see your primary care doctor within 1 week of discharge. Thank you for allowing us to care for you. Questions? Darby Jerez [facility] [phone] Referrals: Billy Quispe [Primary Care Provider] - Feli Bateman MD [Staff Physician] - Disposition: HOME - Home Medications Comprehensive Discharge Medication List: Ambulatory Orders Lisinopril 5 mg PO DAILY 10/25/19 Sitagliptin Phosphate [Januvia] 50 mg PO DAILY 10/25/19 Spironolactone 25 mg PO DAILY 10/25/19 Amlodipine Besylate [Norvasc -] 10 mg PO DAILY #60 tablet 10/27/19 Aspirin [ASA -] 81 mg PO DAILY #60 tab.chew 10/27/19 Atorvastatin Ca [Lipitor] 80 mg PO HS #60 tablet 10/27/19 Physical Therapy Order 1 each NR ASDIR #1 order 10/27/19 Problem List - Problems (1) Cerebrovascular accident (CVA) Code(s): I63.9 - CEREBRAL INFARCTION, UNSPECIFIED (2) Hypertension Code(s): I10 - ESSENTIAL (PRIMARY) HYPERTENSION (3) Hyperlipemia Code(s): E78.5 - HYPERLIPIDEMIA, UNSPECIFIED (4) Diabetes Code(s): E11.9 - TYPE 2 DIABETES MELLITUS WITHOUT COMPLICATIONS (5) CKD (chronic kidney disease) Code(s): N18.9 - CHRONIC KIDNEY DISEASE, UNSPECIFIED (6) DVT prophylaxis Code(s): Z29.9 - ENCOUNTER FOR PROPHYLACTIC MEASURES, UNSPECIFIED - Discharge Referral Referred to [facility] No
[2019-10-27 15:27] VITALS: BP 124/64; PULSE 74
--- NOTE | 2019-10-27 16:04 | PN ---
Progress Note, Physician History of Present Illness: Pt seen and examined at bedside. He is awake and alert. He denies shortness of breath. - Objective Vital Signs: Vital Signs Temperature 98.2 F 10/27/19 14:10 Pulse Rate 74 10/27/19 14:10 Respiratory Rate 20 10/27/19 14:10 Blood Pressure 124/64 10/27/19 14:10 O2 Sat by Pulse Oximetry (%) 97 10/27/19 09:00 Constitutional: Yes: Calm Eyes: Yes: Conjunctiva Clear HENT: Yes: Atraumatic Neck: Yes: Supple Cardiovascular: Yes: S1, S2 Respiratory: Yes: CTA Bilaterally Gastrointestinal: Yes: Soft Genitourinary: Yes: WNL Musculoskeletal: Yes: WNL Edema: No Integumentary: Yes: WNL Neurological: Yes: Oriented Psychiatric: Yes: Oriented Labs: CBC, BMP 10/27/19 10:05 10/27/19 10:05 INR, PTT INR 0.92 (0.83-1.09) 10/25/19 14:45 Problem List - Problems (1) CKD (chronic kidney disease) Code(s): N18.9 - CHRONIC KIDNEY DISEASE, UNSPECIFIED (2) Cerebrovascular accident (CVA) Code(s): I63.9 - CEREBRAL INFARCTION, UNSPECIFIED (3) Hyperlipemia Code(s): E78.5 - HYPERLIPIDEMIA, UNSPECIFIED (4) Hypertension Code(s): I10 - ESSENTIAL (PRIMARY) HYPERTENSION Assessment/Plan Impression 1. CKD 2. CVA 3. HTN 4. cad Plan - renal function at baseline - pt will follow with his primary woodyard operator - bp stable - avoid nsaids - avoid nephrotoxins - discussed with pt and family - ua negative for blood or protein
== END 2019-10-27 15:00 | disposition home or self-care (01) | DRG 65 ==
LOC: JER 15:18 → JERBED 17:20 → J4W 19:03
PROVIDERS: ADMIT Internal Medicine; ATTEND Nurse Practitioner Family
DX: I63.9 Cerebral infarction, unspecified (principal); N17.9 Acute kidney failure, unspecified; E78.5 Hyperlipidemia, unspecified; E11.9 Type 2 diabetes mellitus without complications; I12.9 Hypertensive chronic kidney disease with stage 1 through stage 4 chronic kidney disease, or unspecified chronic kidney disease; E11.22 Type 2 diabetes mellitus with diabetic chronic kidney disease; N18.9 Chronic kidney disease, unspecified
CPT/HCPCS: 36415; 70450-TC; 70551-TC; 80053; 80061; 81003; 82550; 82962; 83036; 83721; 83735; 84100; 84484; 85025; 85610; 85730; 86850; 86900; 86901; 90670; 93005; 93010; 93306-TC; 93880-TC; 97161-GP; 99285-25; J1644; J7030; Q2036

== ENCOUNTER 2021-01-01 17:44 | Emergency (ER) | payer OTHER ==
[2021-01-01 17:49] VITALS: BP 126/85; PULSE 91; TEMP 98.3; BMI 30.5
== END 2021-01-01 18:59 | disposition home or self-care (01) ==
LOC: JER 17:44
DX: K62.5 Hemorrhage of anus and rectum (principal); K64.9 Unspecified hemorrhoids
CPT/HCPCS: 99282-25

== ENCOUNTER 2024-03-30 06:25 | Emergency (ER) | payer OTHER, MEDICARE ==
[2024-03-30 06:36] VITALS: RESP 18; BMI 27.8
[2024-03-30 08:05] LABS: EPI CELLS 5 /uL (0-25.1); HYALINE CASTS 1 /uL (0-3.1); URINE APPEARANCE TURBID; URINE BACTERIA 244 /uL (0-1359); URINE BILIRUBIN NEGATIVE (NEGATIVE); URINE COLOR YELLOW; URINE GLUCOSE (UA) NEGATIVE (NEGATIVE); URINE KETONE NEGATIVE (NEGATIVE); URINE LEUK ESTERASE 2+ (NEGATIVE); URINE NITRITE NEGATIVE (NEGATIVE); URINE PROTEIN 4+ (NEGATIVE); URINE RBC 7278 /uL (0-23.9); URINE UROBILINOGEN 0.2 mg/dL (0.2-1.0); URINE WBC 6998 /uL (0-25.8)
[2024-03-30 08:30] LABS: BASO % 0.4 % (0-2.0); EOS % 0.7 % (0-4.5); HEMATOCRIT 39.8 % (35.4-49); HEMOGLOBIN 14.1 GM/dL (11.7-16.9); LYMPH % 8.1 % (8-40); MCH 32.1 pg (25.7-33.7); MCHC 35.5 g/dl (32.0-35.9); MEAN CELL VOLUME 90.4 fl (80-96); MEAN PLT VOLUME 8.4 fl (7.5-11.1); NEUT % 80.8 % (42.8-82.8); PLATELET COUNT 228 10^3/uL (134-434); RDW 12.8 % (11.9-15.9); WHITE BLOOD COUNT 9.4 K/mm3 (4.0-10.0)
[2024-03-30 08:36] LABS: INR 0.91 (0.83-1.09); PROTHROMBIN TIME (PATIENT) 10.5 SEC (9.7-13.0)
[2024-03-30 08:38] LABS: ACTIVATED PTT 27.9 SECONDS (25.2-36.5)
[2024-03-30] MEDS: SODIUM CHLORIDE 0.9% 500 ML INFUS.BAG IV ONE (08:50)
[2024-03-30 08:51] LABS: POTASSIUM 5.1 mmol/L (3.5-5.1)
[2024-03-30 08:52] LABS: CALCIUM 9.8 mg/dL (8.5-10.1)
[2024-03-30 08:53] LABS: ALBUMIN 3.9 g/dl (3.4-5.0); BLOOD UREA NITROGEN 31.1 mg/dL (7-18)
[2024-03-30 08:56] LABS: CREATININE 2.2 mg/dL (0.55-1.3)
[2024-03-30 08:58] LABS: BILIRUBIN,TOTAL 0.5 mg/dL (0.2-1); TOT PROT 7.5 g/dl (6.4-8.2)
[2024-03-30 09:49] VITALS: BP 109/82; PULSE 94; TEMP 98.2
== END 2024-03-30 10:00 | disposition home or self-care (01) ==
LOC: JER 06:25
DX: R31.9 Hematuria, unspecified (principal); N41.9 Inflammatory disease of prostate, unspecified; R30.0 Dysuria; R39.15 Urgency of urination; R35.0 Frequency of micturition; K62.89 Other specified diseases of anus and rectum
CPT/HCPCS: 36415; 80053; 81003; 85025; 85610; 85730; 87086; 99283-25

== ENCOUNTER 2024-11-13 18:02 | Emergency (ER) | payer OTHER, MEDICARE ==
[2024-11-13 18:16] VITALS: BP 130/64; PULSE 85; RESP 18; TEMP 98.6; BMI 29.1
[2024-11-13 19:06] LABS: ABSOLUTE IMMATURE GRANULOCYTES 0.03 x10^3/uL (0.0-0.031); BASOPHILS # 0.07 x10^3/uL (0.01-0.08); EOSINOPHILS # 0.12 x10^3/uL (0.04-0.54); HEMATOCRIT 40.6 % (40.1-51.0); HEMOGLOBIN 13.7 g/dL (13.7-17.5); MCHC 33.7 g/dl (32.3-36.5); MEAN CELL VOLUME 91.9 fl (79.0-92.2); MEAN PLT VOLUME 10.6 fl (9.4-12.4); MONOCYTE # 1.15 x10^3/uL (0.30-0.82); MONOCYTE % 9.9 % (5.3-12.2); PLATELET COUNT # 190 x10^3/uL (163-337); RDW 12.1 % (12.2-16.6)
[2024-11-13 19:19] LABS: POTASSIUM 4.5 mmol/L (3.5-5.1)
[2024-11-13 19:22] LABS: ALBUMIN 3.9 g/dl (3.4-5.0); BLOOD UREA NITROGEN 29.7 mg/dL (7-18); CALCIUM 9.5 mg/dL (8.5-10.1)
[2024-11-13 19:26] LABS: CREATININE 2.2 mg/dL (0.55-1.3)
[2024-11-13 19:27] LABS: BILIRUBIN,TOTAL 0.5 mg/dL (0.2-1); TOT PROT 7.5 g/dl (6.4-8.2)
[2024-11-13 19:43] LABS: EPI CELLS 5 /uL (0-25.1); HYALINE CASTS 7 /uL (0-3.1); URINE APPEARANCE CLOUDY; URINE BACTERIA 219 /uL (0-1359); URINE BILIRUBIN NEGATIVE (NEGATIVE); URINE COLOR ORANGE; URINE GLUCOSE (UA) NEGATIVE (NEGATIVE); URINE KETONE NEGATIVE (NEGATIVE); URINE LEUK ESTERASE 2+ (NEGATIVE); URINE NITRITE NEGATIVE (NEGATIVE); URINE PROTEIN 3+ (NEGATIVE); URINE UROBILINOGEN 0.2 mg/dL (0.2-1.0); URINE WBC 668 /uL (0-25.8)
[2024-11-13] MEDS: CEFTRIAXONE 1 GM in DEXTROSE 5%-WATER - 100 ML IVPB ONE (19:55)
[2024-11-13] MEDS ORDERED: CEFTRIAXONE 1 G/50 ML PREMIX 50 ML IVPB ONE (19:57)
[2024-11-13 22:50] LABS: URINE RBC 588.6 /uL (0-23.9)
== END 2024-11-13 20:23 | disposition home or self-care (01) ==
LOC: JER 18:02
DX: N30.90 Cystitis, unspecified without hematuria (principal)
CPT/HCPCS: 36415; 80053; 81003; 85025; 87086; 99284-25

== ENCOUNTER 2024-11-20 00:10 | Emergency (ER) | payer OTHER, MEDICARE ==
[2024-11-20 00:16] VITALS: BP 129/76; PULSE 83; RESP 18; TEMP 97.9; BMI 29.1
[2024-11-20 00:50] LABS: URINE APPEARANCE CLEAR; URINE BILIRUBIN NEGATIVE (NEGATIVE); URINE COLOR YELLOW; URINE GLUCOSE (UA) NEGATIVE (NEGATIVE); URINE KETONE NEGATIVE (NEGATIVE); URINE LEUK ESTERASE NEGATIVE (NEGATIVE); URINE NITRITE NEGATIVE (NEGATIVE); URINE PROTEIN NEGATIVE (NEGATIVE); URINE UROBILINOGEN 0.2 mg/dL (0.2-1.0)
== END 2024-11-20 01:30 | disposition home or self-care (01) ==
LOC: JER 00:10
DX: R31.9 Hematuria, unspecified (principal); K62.5 Hemorrhage of anus and rectum
CPT/HCPCS: 81003; 87086; 99283-25